=== PATIENT | female | born 1970 | race Hispanic/Latino ===

== ENCOUNTER 2023-11-25 15:10 | Emergency (ER) | payer BC ==
[~2023-11-25 15:10] MED LIST: Iopamidol 300 61% 100 ML VIAL FS ONE
[2023-11-25 15:36] LABS: Bilirubin Neg (Negative); Blood, Urine 250 (Negative); Clarity Slightly Cloudy (Clear); Glucose, Urine (Dipstick) Normal (Negative); Ketone, Urine 50 mg/dL (Negative); Leukocyte 500 (Negative); Nitrite Negative (Negative); Protein, Urine (Dipstick) 30 mg/dl (Neg-Trace); Specific Gravity, Urine 1.015 (1.005-1.030)
[2023-11-25 15:45] LABS: Bacteria/HPF 3+ HPF (None Seen); CAUTI Indications for Culture Dysuria,urgency,freq; Transitional Epithelial 0-3 HPF (None Seen); Trichomonas/HPF Rare HPF (None Seen); WBC/HPF 21-50 HPF (0-3)
[2023-11-25 15:49] LABS: Epithelial Cast 0-3 LPF (None Seen)
[2023-11-25 15:50] LABS: Urine Culture Reflex Yes Yes
[2023-11-25 15:53] LABS: #Basophils 0.04 10x3/uL (0.0-0.2); #Eosinphils 0.04 10x3/uL (0.0-0.5); #Monocytes 0.94 10x3/uL (0.0-1.1); #Neutrophils 12.51 10x3/uL (1.5-8.4); %Basophils 0.3 % (0.0-2.0); %Eosinophils 0.3 % (0.0-6.0); %Monocytes 6.4 % (0.0-10.0); %Neutrophils 85.7 % (40.0-75.0); Hematocrit 50.1 % (34.9-44.5); Hemoglobin 17.5 g/dL (12.0-15.5); Mean Corpuscular HGB CONC 34.9 g/dL (32.0-36.0); Mean Corpuscular Hemoglobin 29.1 pg (27.0-33.0); Mean Corpuscular Volume 83.4 fL (81.6-98.3); Mean Platelet Volume 10.8 fL (7.4-10.4); Platelet Count 290 10x3/uL (150-450); RBC Distribution Width 13.9 % (11.5-14.5); Red Blood Cell (RBC) Count 6.01 10x6/uL (3.90-5.03); White Blood Cell (WBC) Count 14.6 10x3/uL (3.5-10.5)
[2023-11-25] MEDS ORDERED: cefTRIAXone (ROCEPHIN) 1 GM VIAL ONE (15:57)
[2023-11-25] MEDS ORDERED: Ondansetron PF 4 MG/2 ML Vial ONE (15:57)
[2023-11-25] MEDS ORDERED: Morphine 2 MG/ML VIAL ONE (15:57)
[2023-11-25 16:06] LABS: ALT (SGPT) 12 U/L (8-55); AST (SGOT) 17 U/L (5-34); Albumin 3.8 g/dL (3.5-5.0); Alkaline Phosphatase 90 U/L (40-110); Anion Gap 15 mmol/L (10-20); BUN (Urea Nitrogen) 8 mg/dL (9.8-20.1); Bilirubin, Total 0.9 mg/dL (0.2-1.2); Calc. Creatinine Clearance 0 mL/min (70-130); Calcium 8.7 mg/dL (7.8-10.44); Carbon Dioxide 20 mmol/L (22-29); Chloride 105 mmol/L (98-107); Estimated GFR 91; Globulin 3.5 g/dL (2.4-3.5); Glucose 93 mg/dL (70-105); Lipase 10 U/L (8-78); Potassium 3.6 mmol/L (3.5-5.1); Protein, Total 7.3 g/dL (6.0-8.3); Sodium 136 mmol/L (136-145)
[2023-11-25 16:12] LABS: Troponin I Less than 0.010 ng/mL (< 0.028)
[2023-11-25] MEDS ORDERED: Ketorolac Tromethamine 30 MG (1 mL) VIAL ONE (16:59)
== END 2023-11-25 17:08 | disposition home or self-care (01) ==
LOC: CSHERS 15:10
DX: N10 Acute pyelonephritis (principal); F17.210 Nicotine dependence, cigarettes, uncomplicated
CPT/HCPCS: 36415; 74177; 80053; 81001; 83690; 84484; 85025; 86850; 86900; 86901; 87040; 87077; 87086; 87186; 93005; 96374; 96375; J0696; J1885; J2272; J2405; Q9967